=== PATIENT | male | born 1950 | race Caucasian/White ===

== ENCOUNTER 2020-06-18 09:57 | Emergency (ER) | payer MEDICARE ==
[2020-06-18] MEDS ORDERED: NORMAL SALINE 1000 ML 1,000 ML IV ONE (11:23)
--- NOTE | 2020-06-18 11:29 | ER Document Report ---
ED Medical Screen (RME) - General Chief Complaint: Bloody Stools Stated Complaint: ABDOMINAL PAIN Time Seen by Provider: 06/18/20 11:19 Primary Care Provider: PATRICIO KRISHNA MD [Primary Care Provider] - Follow up as needed Mode of Arrival: Ambulatory Information source: Patient Notes: 70-year-old male presented to ED for complaint of low back and left lower quadr ant abdominal pain. He does have a history of colitis, heart attack, cardiac bypass, pulmonary emboli, and had a large bloody stool on with large clots. He is alert oriented respirations regular and unlabored speaking in full sentences. I have ordered type and screen CBC chemistry urine and a CT abdomen pelvis with IV and oral contrast. Patient is on Subutex 2 mg every 12 hours lisinopril 1 tablet daily aspirin 81 mg daily Nexium 400 mg yesterday Celebrex 200 mg needed in the evening and is on 5 mg daily atorvastatin 40 mg daily. I have greeted and performed a rapid initial assessment of this patient. A comprehensive ED assessment and evaluation of the patient, analysis of test results and completion of medical decision making process will be conducted by an additional ED providers. TRAVEL OUTSIDE OF THE [place] IN LAST 30 DAYS: No - Related Data Allergies/Adverse Reactions: niacin [Niacin] Allergy (Severe, Verified 08/18/14 09:25) Anaphylaxis Past Medical History - Past Medical History Cardiac Medical History: Reports: Hx Heart Attack - x2, Hx Hypertension Denies: Hx Coronary Artery Disease Pulmonary Medical History: Reports: Hx COPD Denies: Hx Asthma, Hx Bronchitis, Hx Pneumonia Neurological Medical History: Denies: Hx Cerebrovascular Accident, Hx Seizures Musculoskeltal Medical History: Reports Hx Arthritis - Immunizations Hx Diphtheria, Pertussis, Tetanus Vaccination: No Physical Exam - Vital signs Vitals: Temp Pulse Resp BP Pulse Ox 97.9 F 70 16 138/77 H 98 06/18/20 10:06/18/20 10:06/18/20 10:06/18/20 10:06/18/20 10:19 Course - Vital Signs Vital signs: Temp Pulse Resp BP Pulse Ox 97.9 F 70 16 138/77 H 98 06/18/20 10:06/18/20 10:06/18/20 10:06/18/20 10:06/18/20 10:19 Doctor's Discharge - Discharge Referrals: PATRICIO KRISHNA MD [Primary Care Provider] - Follow up as needed
[2020-06-18 12:05] LABS: ABSOLUTE EOSINOPHILS # (AUTO) 0.2 10^3/uL (0.0-0.6); ABSOLUTE LYMPHOCYTES (AUTO) 1.4 10^3/uL (0.5-4.7); ABSOLUTE MONOCYTES (AUTO) 0.5 10^3/uL (0.1-1.4); ABSOLUTE NEUT (AUTO) 7.2 10^3/uL (1.7-8.2); BASOPHILS % (AUTO) 0.4 % (0-2); EOSINOPHILS % (AUTO) 1.7 % (0-6); HEMATOCRIT 47.4 % (37.9-51.0); HEMOGLOBIN 16.3 g/dL (13.5-17.0); MEAN CORPUSCULAR HEMOGLOBIN 30.6 pg (27.0-33.4); MEAN CORPUSCULAR HGB CONC 34.4 g/dL (32.0-36.0); MEAN CORPUSCULAR VOLUME 89 fl (80-97); MONOCYTES % (AUTO) 5.5 % (3-13); PLATELET COUNT 178 10^3/uL (150-450); RED BLOOD COUNT 5.32 10^6/uL (4.35-5.55); SEGMENTED NEUTROPHILS % (AUTO) 77.4 % (42-78); TOTAL CELLS COUNTED % (AUTO) 100 %; WHITE BLOOD COUNT 9.3 10^3/uL (4.0-10.5)
[2020-06-18 12:26] LABS: ALBUMIN 4.4 g/dL (3.5-5.0); ALKALINE PHOSPHATASE 55 U/L (38-126); ANION GAP 7 (5-19); ASPARTATE AMINO TRANSFERASE 29 U/L (17-59); BILIRUBIN,TOTAL 1.1 mg/dL (0.2-1.3); BLOOD UREA NITROGEN 30 mg/dL (7-20); CALCIUM 9.7 mg/dL (8.4-10.2); CARBON DIOXIDE 28 mmol/L (22-30); CHLORIDE 103 mmol/L (98-107); GLUCOSE 105 mg/dL (75-110); POTASSIUM 4.7 mmol/L (3.6-5.0); TOTAL PROTEIN 7.7 g/dL (6.3-8.2)
[2020-06-18 12:40] LABS: APPEARANCE,URINE CLEAR; BILIRUBIN,URINE NEGATIVE (NEGATIVE); COLOR,URINE YELLOW; GLUCOSE, URINE NEGATIVE (NEGATIVE); KETONES,URINE NEGATIVE (NEGATIVE); LEUKOCYTE ESTERASE,URINE NEGATIVE (NEGATIVE); NITRITE,URINE NEGATIVE (NEGATIVE); PROTEIN,URINE NEGATIVE (NEGATIVE); URINE SPECIFIC GRAVITY 1.024; UROBILINOGEN,URINE NEGATIVE mg/dL (<2.0)
--- NOTE | 2020-06-18 16:04 | ER Document Report ---
ED General - General Chief Complaint: Bloody Stools Stated Complaint: ABDOMINAL PAIN Time Seen by Provider: 06/18/20 11:19 Primary Care Provider: PATRICIO KRISHNA MD [ACTIVE STAFF] - Follow up as needed Mode of Arrival: Ambulatory TRAVEL OUTSIDE OF THE [place] IN LAST 30 DAYS: No - HPI Notes: 70-year-old male presents with problems with urination. Patient states that for the past 2 weeks he has had difficulty initiating urination, described as "hard to get started". He noticed that his urine starts and stops. He has a pain in his bladder/lower pelvic area, described as a knife stabbing sensation. He denies dysuria. He states concern of potentially may be he has passed a kidney stone. Patient additionally reports that 2 days ago he was constipated, he gave himself an enema, after which he had some bleeding, described as a large glob of blood. This has not occurred since. He currently denies abdominal pain. He reports chronic back pain for which he takes opioids. - Related Data Allergies/Adverse Reactions: niacin [Niacin] Allergy (Severe, Verified 08/18/14 09:25) Anaphylaxis Past Medical History - General Information source: Patient - Social History Smoking Status: Never Smoker Chew tobacco use (# tins/day): No Frequency of alcohol use: None Drug Abuse: None Family History: Reviewed & Not Pertinent - Past Medical History Cardiac Medical History: Reports: Hx Heart Attack - x2, Hx Hypercholesterolemia, Hx Hypertension Denies: Hx Coronary Artery Disease Pulmonary Medical History: Reports: Hx COPD Denies: Hx Asthma, Hx Bronchitis, Hx Pneumonia Neurological Medical History: Denies: Hx Cerebrovascular Accident, Hx Seizures Musculoskeletal Medical History: Reports Hx Arthritis Past Surgical History: Reports: Hx Cardiac Surgery - triple bypass - Immunizations Hx Diphtheria, Pertussis, Tetanus Vaccination: No Hx Pneumococcal Vaccination: 11/04/11 Review of Systems - Review of Systems Constitutional: denies: Fever EENT: No symptoms reported Cardiovascular: denies: Chest pain Respiratory: denies: Short of breath Gastrointestinal: See HPI Genitourinary: See HPI Male Genitourinary: denies: Testicular pain Musculoskeletal: Back pain Skin: No symptoms reported Hematologic/Lymphatic: No symptoms reported Neurological/Psychological: No symptoms reported Physical Exam - Vital signs Vitals: Temp Pulse BP Pulse Ox 97.9 F 73 138/77 H 98 06/18/20 10:18 06/18/20 10:18 06/18/20 10:18 06/18/20 10:18 Interpretation: Normal - General General appearance: Appears well In distress: None - HEENT Head: Normocephalic Extraocular movements intact: Yes - Respiratory Breath sounds: Normal - Cardiovascular Rhythm: Regular Heart sounds: Normal auscultation - Abdominal Distension: No distension Bowel sounds: Normal Tenderness: Nontender - Rectal Stool: Heme negative Hemorrhoids: External Prostate: Tender Notes: Nurse produce associate present - Genitourinary Tenderness: Nontender Scrotum: No: Swelling, Redness - Extremities General upper extremity: Normal ROM General lower extremity: Normal ROM - Neurological Neuro grossly intact: Yes Cognition: Normal Orientation: AAOx4 - Psychological Associated symptoms: Normal affect - Skin Skin Temperature: Warm Course - Re-evaluation Re-evalutation: 70-year-old male here with difficulty initiating urination. Also had an episode of bloody stool after constipation/enema administration, currently there is no evidence of lower GI bleed. On exam he is well-appearing, his vitals are stable. His abdomen is nontender. On his rectal exam, he did have tenderness to his prostate, stool was negative for blood. He underwent a laboratory evaluation, there is no acute anemia or leukocytosis. He additionally had a CT abdomen which was negative for acute pathology. Based on his description of symptoms and prostate tenderness, feel that his symptoms are most concurrent with prostatitis. He was prescribed a course of Augmentin and instructed to follow-up with his primary care doctor. He was discharged in stable condition. - Vital Signs Vital signs: Temp Pulse Resp BP Pulse Ox 97.7 F 61 14 122/81 94 06/18/20 17:47 06/18/20 17:47 06/18/20 17:47 06/18/20 17:47 06/18/20 17:47 - Laboratory Result Diagrams: 06/18/20 11:42 06/18/20 11:42 Laboratory results interpreted by me: 06/18/20 06/18/20 11:42 12:03 BUN 30 H Urine Blood SMALL H - Diagnostic Test Radiology reviewed: Image reviewed, Reports reviewed Discharge - Discharge Clinical Impression: Prostatitis, acute Condition: Stable Disposition: HOME, SELF-CARE Instructions: Prostatitis ([facility]) Additional Instructions: please begin course of antibiotics. please follow up for your PCP. use pyridium for bladder pain. return to ED for any concerning symptoms Prescriptions: Amoxicillin/Potassium Clav [Augmentin 875-125 Tablet] 1 tab PO Q12 7 Days #14 tablet Phenazopyridine HCl [Pyridium 100 Mg Tablet] 100 mg PO TIDP PRN 3 Days #9 tablet PRN Reason: Referrals: PATRICIO KRISHNA MD [ACTIVE STAFF] - Follow up as needed
--- NOTE | 2020-06-18 16:09 | RADIOLOGY REPORT (SQ) ---
EXAM DESCRIPTION: CT ABD/PELVIS WITH IV ORAL IMAGES COMPLETED DATE/TIME: 06/18/2020 3:51 pm REASON FOR STUDY: Lower left abdominal pain rectal bleed COMPARISON: Chest CT 10/18/2016 TECHNIQUE: CT scan of the abdomen and pelvis performed using helical scanning technique with dynamic intravenous contrast injection and oral contrast. Images reviewed with lung, soft tissue, and bone w indows. Reconstructed coronal and sagittal MPR images reviewed. Delayed images for evaluation of the urinary system also acquired. All images stored on PACS. All CT scanners at this facility use dose modulation, iterative reconstruction, and/or weight based d osing when appropriate to reduce radiation dose to as low as reasonably achievable (ALARA). [facility]: Dose Right [facility]: CareDose [facility]: Dose Right [facility]: Teradose 4D [facility]: Eldarion CONTRAST TYPE AND DOSE: contrast/concentration: Isovue 350.00 mmol/ml; Total Contrast Delivered: 100 .0 ml; Total Saline Delivered: 72.0 ml RENAL FUNCTION: GFR > 60. RADIATION DOSE: CT Rad equipment meets quality standard of care and radiation dose reduction techniq ues were employed. CTDIvol: 12.1 - 16.5 mGy. DLP: 1521 mGy-cm.. LIMITATIONS: None. FINDINGS: LOWER CHEST: No acute findings. Scattered emphysema. LIVER: Normal size. No enhancing masses. No dilated ducts. SPLEEN: Normal size. No focal lesions. PANCREAS: No masses identified. No significant calcifications. No adjacent inflammation or peripancre atic fluid collections. Pancreatic duct not dilated. GALLBLADDER: No calcified stones. No inflammatory changes to suggest cholecystitis. ADRENAL GLANDS: No significant masses. RIGHT KIDNEY AND URETER: No cysts identified. No solid masses identified. No calcified stones. No hyd ronephrosis or hydroureter. LEFT KIDNEY AND URETER: No cysts identified. No solid masses identified. No calcified stones. No hydr onephrosis or hydroureter. AORTA AND VESSELS: No aneurysm. No dissection. Renal arteries, SMA, celiac without significant stenos is. RETROPERITONEUM: No bulky retroperitoneal adenopathy. BOWEL AND PERITONEAL CAVITY: No obstruction or inflammatory changes. No free fluid. APPENDIX: Normal. PELVIS: No mass. No free fluid. Unremarkable bladder. ABDOMINAL WALL: No masses. No hernias. BONES: No acute findings. OTHER: No other significant finding. IMPRESSION: NO ACUTE FINDINGS IN THE ABDOMEN OR PELVIS ON CT SCAN WITH IV CONTRAST. TECHNICAL DOCUMENTATION: JOB ID: [id number] [id number] Quality ID # [id number]: Final reports with documentation of one or more dose reduction techniques (e.g., Au tomated exposure control, adjustment of the mA and/or kV according to patient size, use of iterative reconstruction technique) 2010 [employer]- All Rights Reserved Reading location - IP/workstation name: [email or web address]
[2020-06-18] MEDS ORDERED: KETOROLAC TROMETHAMINE INJ/PF 30 MG/1 ML SDV IV ONE (16:34)
[2020-06-18] MEDS ORDERED: PHENAZOPYRIDINE HCL 200 MG TABLET PO ONE (16:34)
[2020-06-18] MEDS ORDERED: CEFTRIAXONE INJ 1000 MG VIAL IV ONE (16:52)
[2020-06-18] MEDS ORDERED: CEFTRIAXONE 1 GM/D5W RTU 1 GM/50 ML RTUPB IV ONE (16:59)
[2020-06-18 17:50] VITALS: BP 122/81
== END 2020-06-18 17:51 | disposition home or self-care (01) ==
LOC: ER 09:57
DX: N41.0 Acute prostatitis (principal); R10.9 Unspecified abdominal pain; R19.5 Other fecal abnormalities; R10.2 Pelvic and perineal pain; R39.89 Other symptoms and signs involving the genitourinary system; K59.00 Constipation, unspecified; Z88.8 Allergy status to other drugs, medicaments and biological substances; M54.9 Dorsalgia, unspecified; G89.29 Other chronic pain; J44.9 Chronic obstructive pulmonary disease, unspecified; I10 Essential (primary) hypertension; I25.2 Old myocardial infarction
CPT/HCPCS: 99285; 96361; 96375; 96365; 86900; 86901; 36415; 86850; 85025; 80053; 81001; 74177; J1885; A9270; J7030; J0696; J3490